=== PATIENT | female | born 1945 | race Caucasian/White ===

== ENCOUNTER 2022-08-09 07:16 | Day surgery (SDC) | payer OTHER ==
[2022-08-03 15:03] VITALS: BMI 30.4
[2022-08-09] MEDS ORDERED: POVIDONE-IODINE 5% OPHTHALMIC PREP 30 ML SOLUTION ONE (09:18)
[2022-08-09] MEDS ORDERED: ERYTHROMYCIN 0.5% OPHTHALMIC OINTMENT 3.5 GM TUBE ONE (09:18)
[2022-08-09] MEDS ORDERED: OXYMETAZOLINE 0.05% NASAL SOLUTION 15 ML BOTTLE NS ONE (09:18)
[2022-08-09] MEDS ORDERED: THROMBIN (BOVINE) 5,000 UNIT VIAL TP ONE (09:18)
[2022-08-09] MEDS ORDERED: TETRACAINE 0.5% OPHTH SOLN 2 ML BOTTLE ONE (09:18)
[2022-08-09] MEDS ORDERED: BUPIVACAINE HCL 50 ML ONE (09:18)
[2022-08-09] MEDS ORDERED: LIDOCAINE 1%-EPI 1:100,000 30 ML MDV IJ ONE (09:18)
[2022-08-09] MEDS ORDERED: PROPOFOL 20 ML ONE (09:21)
[2022-08-09] MEDS ORDERED: MIDAZOLAM HCL 2 MG/2 ML SINGLE DOSE VIAL ONE (09:21)
[2022-08-09] MEDS ORDERED: ceFAZolin SODIUM 1 GM VIAL ONE ×2 (09:38→09:58)
[2022-08-09] MEDS ORDERED: DEXAMETHASONE SOD PHOSPHATE 4 MG/1 ML VIAL ONE (09:58)
[2022-08-09] MEDS ORDERED: ONDANSETRON 4 MG/2 ML VIAL ONE ×2 (09:58→11:03)
[2022-08-09] MEDS ORDERED: ONDANSETRON 4 MG/2 ML VIAL IVPUSH PRN (11:21)
[2022-08-09] MEDS ORDERED: oxyCODONE HCL 5 MG TABLET PO PRN (11:21)
[2022-08-09] MEDS ORDERED: ACETAMINOPHEN 325 MG TABLET (FP) PO PRN (11:21)
[2022-08-09] MEDS ORDERED: LACTATED RINGERS SOLUTION 1,000 ML IV SCH (11:30)
[2022-08-09 12:58] VITALS: RESP 19; TEMP 98.5
[2022-08-09 13:24] VITALS: BP 149/72; PULSE 68
== END 2022-08-09 13:40 | disposition home or self-care (01) ==
LOC: FASU 07:16
PROVIDERS: ATTEND Ophthalmology
PROC: 08Q Eye, Repair (ICD-10-PCS; 2022-08-09)
PROC: 081X0Z3 Bypass Right Lacrimal Duct to Nasal Cavity, Open Approach (ICD-10-PCS; principal; 2022-08-09 10:09)
DX: H04.551 Acquired stenosis of right nasolacrimal duct (principal)
CPT/HCPCS: 88304-TC; 94760